=== PATIENT | female | born 1995 | race Caucasian/White ===

== ENCOUNTER 2020-01-24 16:34 | Emergency (ER) | payer MEDICAID, OTHER ==
[~2020-01-24] VITALS: Ht 167.6 cm; Wt 65.8 kg
[2020-01-24 16:42] VITALS: BP_SYST 113
== END 2020-01-24 17:57 | disposition home or self-care (01) ==
LOC: SED 16:34
DX: R55 Syncope and collapse (principal)
CPT/HCPCS: 93005; 99283